=== PATIENT | female | born 1985 | race Caucasian/White ===

== ENCOUNTER 2024-05-07 13:48 | Outpatient (CLI) | payer BC, SELFPAY | END 2024-05-07 13:49 | disposition home or self-care (01) | LOC: ANHIMG 13:51 | PROVIDERS: PCP Family Medicine; Visit Provider Family Medicine | DX: Z12.31 Encounter for screening mammogram for malignant neoplasm of breast (principal); R92.8 Other abnormal and inconclusive findings on diagnostic imaging of breast | CPT/HCPCS: 77063; 77067 ==

== ENCOUNTER 2024-05-24 10:48 | Outpatient (CLI) | payer BC, SELFPAY ==
--- NOTE | ~2024-05-24 | MMUS_ITS ---
EXAMINATION: MM diagnostic eduar LT w justin, US breast LT limited HISTORY: Follow-up left breast asymmetry TECHNIQUE: Additional 3-D tomosynthesis images of the left breast were performed and synthetic 2-D im ages were generated. CAD analysis was submitted and interpreted. High resolution Limited left breast ultrasound was performed. COMPARISON: 05/07/2024 BREAST PARENCHYMAL COMPOSITION: Not dense: There are scattered areas of fibroglandular density. FINDINGS: MAMMOGRAPHIC FINDINGS: There are no suspicious masses, calcifications or architectural distortion in the left breast to sugg est malignancy. ULTRASOUND: Limited left breast ultrasound: Normal heterogeneous echotexture. There is a small cyst at 1:00, 1 cm from the nipple measuring 2 mm. No suspicious masses to suggest malignancy. IMPRESSION: 1. No evidence for malignancy in the left breast. 2. Routine yearly screening mammogram and regular clinical breast examination are recommended. BI-RADS Category 2: Benign finding(s). Reviewed, dictated and finalized at location B. IMPRESSION: 1. No evidence for malignancy in the left breast. 2. Routine yearly screening mammogram and regular clinical breast examination a re recommended. BI-RADS Category 2: Benign finding(s).
--- OUTSIDE RECORDS SUMMARY | 2024-05-24 13:24 | XMS_ITS | Encounter Summary ---
Author Organization [facility] Address [address] [facility] [address] Care Team Providers Care Care Giver Name Role Phone Jasmyn Stewart MD Primary Care Provider [phone] Encounter Details Date Type Department Care Team (Late st Contact Info) Description 01/06/2019 Lab Requisition [facility] DermPath Lab [address] [facility], [place] [phone] Mikki Pierson DO [address] [facility] [address] [place] [address] Social History Tobacco Use Types Packs/Day Years Used Date Smoking Tobacco: Never Assessed Sex and Gender Information Value Date Recorded Sex Assigned at Female 09/18/2020 11:22 AM CDT Gender Identity Female 09/18/2020 11:22 AM CDT Sexual Orientation Not on file documented as of this encounter Plan of Treatment Not on file documented as of this encounter Procedures Procedure Name Priority Date/Time Associated Diagnosis Comments DERMATOPATHOLOGY Routine 01/05/2019 12:0 0 AM CDT documented in this encounter Results * DERMATOPATHOLOGY (01/05/2019 12:00 AM CDT) Case Report Dermatopathology Report Case: [id number] Authorizing Provider: Mikki Pierson DO Collected: 01/05/2019 12:00 AM Ordering Location: [facility] DermPath Lab Received: 01/06/2019 12:25 PM Pathologist: Wendy Lopez MD Specimen: Skin, left back 12:53 PM CDT DERMATOPATHOLOGY LABORATORY Final Diagnosis Specimen A. SKIN, left back: ACTINIC KERATOSIS (L57.0) (see microscopic description) 12:53 PM CDT DERMATOPATHOLOGY LABORATORY Clinical History R/O BCC. 12:53 PM CDT DERMATOPATHOLOGY LABORATORY Gross Description Specimen A: Received is one formalin filled container labeled with the patient's name and designated left back. The specimen consists of a shave measuring 2t2w0ja. Jar 0. 12:53 PM CDT DERMATOPATHOLOGY LABORATORY Microscopic Description Specimen A. SKIN, left back: There is focal parakeratosis. The lower half of the epidermis shows disorderly maturation of keratinocytes with nuclear pleomorphism. Additional deeper sections were obtained and reviewed. 12:53 PM CDT DERMATOPATHOLOGY LABORATORY Disclaimer An external and internal positive and negative controls are appropriate for the histochemical, immunohistochemical and immunofluorescence stain(s) in this case (if any), except where stated explicitly. The performance characteristics of the stain(s) cited in this report were developed and its performance characteristic determined by the Dermatopathology Laboratory at [facility], directed by Dr. Huong Lopez. These tests need not be, and therefore are not, approved by the [place] Food and Drug Administration. The tests are used for clinical purposes. Billing Codes Specimen Charges Stain Charges 91829 1 12:53 PM CDT DERMATOPATHOLOGY LABORATORY Embedded Images 12:53 PM CDT DERMATOPATHOLOGY LABORATORY Pathology/Cytolog y TISSUE SPECIMEN FROM SKIN / Unknown 01/05/2019 01/06/2019 12:25 PM CDT Mikki Pierson DO LAB - PATHOLOGY/C YTOLOGY ORDERABLES DERMATOPATHOLOGY LABORATORY [facility] - Department of Dermatology [address] [place] [address], 5th Floor Lab [address] [phone] documented in this encounter Visit Diagnoses Not on filedocumented in this encounter Care Teams Care Giver Relationship Specialty Start Date End Date Jasmyn Stewart MD [address] [place] [phone] PCP - General Internal Medicine 05/27/17 documented as of this encounter
--- OUTSIDE RECORDS SUMMARY | 2024-05-24 13:24 | XMS_ITS | Clinical Summary ---
Author Organization [facility] [address] Address [address] [place] [address] Phone Care Team Providers Care Mathematical Engineer Name Role Phone Mary Stewart MD Primary Care Provider [phone] Allergies Active Allergy Reactions Criticality Noted Date Comments Meloxicam Low Medications Blisovi Fe 03/29, 28, 1 mg-20 mcg (21)/75 mg (7) per tablet Take 1 tablet by mouth daily 2 Active fluticasone propionate (FLONASE) 50 mcg/actuation nasal spray Administer 1 spray into each nostril daily Active Active Problems Problem Noted Date Diagnosed Date Chronic rhinitis 02/02/2017 Constipation, chronic 02/02/2017 Chronic GERD 02/02/2017 Immunizations Immunization Administration Dates Next Due Influenza, Quadrivalent, Split, Intramuscular Varicella 01/29/2016 Social History Tobacco Use Types Packs/Day Years Used Date Smoking Tobacco: Never Smokeless Tobacco: Never AUDIT-C Answer Date Recorded Frequency of Alcohol Consumption Not on file 08/29/2021 Q2: How many drinks containi ng alcohol do you have on a typical day when you are drinking? Patient does not drink Frequency of Binge Drinking Not on file 08/09 Personal Safety Answer Date Recorded Getting School Help Needed Not on file 02/26 Comments Unknown Sex and Gender Information Value Date Recorded Sex Assigned at Not on file Legal Sex Female 4:16 PM PUBLIC HEALTH SANITARIAN TECHNICIAN Gender Identity Not on file Sexual Orientation Not on file Obstetrics History Para Term AB IAB SAB Ectopic Multiple Livin g Live Births 1 Date Outcome GA Total Labor Labor/2nd/3rd Weight Sex Type Anes PTL Neli A1 A5 Name Clin Last Filed Vital Signs Vital Sign Reading Time Taken Comments Blood Pressure 119/75 12/24/2021 10:59 AM CDT Pulse 95 12/24/2021 10:59 AM CDT Temperature 37.2 C (99 F) 12/24/2021 10:59 AM CDT Respiratory Rate 18 12/24/2021 10:59 AM CDT Oxygen Saturation 99% 12/24/2021 10:59 AM CDT Inhaled Oxygen Concentration - - Weight 63 kg (138 lb 14.4 oz) 12/24/2021 10:59 A M CDT Height 161.3 cm (5' 3.5 ) 12/24/2021 10:59 AM CD T Body Mass Index 24.22 12/24/2021 10:59 AM CDT Plan of Treatment Health Maintenance Due Date Last Done Comments Breast Cancer Screening-Mammogram 1984 Depression Screening 1984 Hepatitis C Screening 1984 Hepatitis B Screening 02/23/2002 Regular Well Visit/Exam 18-64 02/23/2002 Cervical Cancer Screening 01/26/20142012, 01/20/2012 Varicella Vaccines (2 of 2 - 13+ 2-dose series) 02/26/2016 01/29/2016 Influenza Vaccine (#1) 2023 01/29/2016 DTaP/Tdap/Td Vaccine (2 - Td or Tdap) 05/28/2027 05/27/2017 HPV Vaccines Aged Out No longer eligi ble based on patient's age to complete this topic Pneumococcal vaccine <65 Aged Out No longer eligible based on patient's age to complete this topic Procedures Procedure Name Priority Date/Time Associated Diagnosis Comments THINPAP, REFLEX HPV ALL PTH Routine 01/26/2013 9:01 AM PUBLIC HEALTH SANITARIAN TECHNICIAN from Last 3 Months or Most Recently Relevant to Health Maintenance Results * ThinPrep Pap, Reflex HPV all pth (01/26/2013 9:01 AM PUBLIC HEALTH SANITARIAN TECHNICIAN) SOURCE: SEE NOTE [facility] HISTORICAL RESULTS Comment:Vagina, Cervix, Endo cervix CLINICAL INFORMATION: SEE NOTE [facility] HISTORICAL RESULTS Comment:Information not prov ided LMP SEE NOTE [facility] HISTORICAL RESULTS Comment:INFORMATION NOT PROV IDED Previous Pap SEE NOTE [facility] HISTORICAL RESULTS Comment:INFORMATION NOT PROV IDED Prev. Bx SEE NOTE [facility] HISTORICAL RESULTS Comment:INFORMATION NOT PROV IDED Pap, specimen adequacy SEE NOTE [facility] HISTORICAL RESULTS Comment: Satisfactory for evaluation. Endocervical/transformation zone component present. Age and/or menstrual status not provided HPV interp SEE NOTE [facility] HISTORICAL RESULTS Comment:Negative for intraep ithelial lesion or malignancy. Lactobacillus species SEE NOTE [facility] HISTORICAL RESULTS Comment: This Pap test has been evaluated with computer assisted technology. Stereo Operator SEE NOTE [facility] HISTORICAL RESULTS Comment:BLG, CT(ASCP) Review digital sales executive SEE NOTE [facility] HISTORICAL RESULTS Comment: MLO, CT(ASCP) Test performed at [facility] [employer] [address] Director: RICHELLE CORTEZ DO, MPH 01/26/2013 9:01 AM PUBLIC HEALTH SANITARIAN TECHNICIAN Mary Stewart MD LAB PATHOLOGY ORDERABLES F inal Result [facility] HISTORICAL RESULTS from Last 3 Months or Most Recently Relevant to Health Maintenance Insurance [place] [place] [employer] [place] [address] [address] [employer] Care Teams Mathematical Engineer Relationship Specialty Start Date End Date Mary Stewart MD PCP - General 06/07/16
--- OUTSIDE RECORDS SUMMARY | 2024-05-24 13:24 | XMS_ITS | Patient Health Summary ---
Author Organization [facility] [employer] Address [address] [facility] [place] [address] Care Team Providers Care Conventional Machinist Name Role Phone Jasmyn Stewart MD Primary Care Provider [phone] Note from [facility],non-owned Affiliates and Associated Physician Practices is amultiple site organization consisting of ambulatory clinics and hospital sitesin [place], [place], [place] and [place]. This disclosure is being madepursuant to the Care Everywhere program and may not contain all information available regarding this patient. Last updated 17.[facility] Allergies * Meloxicam(Rash) -Medium Criticality Medications Be aware that medications may not be up to date on this document. Always verify current medications with the patient. No known medications Immunizations * TDAP (7yrs+)(Given 05/27/2017) Social History Tobacco Use Types Packs/Day Years Used Date Smoking Tobacco: Never Assessed Sex and Gender Information Value Date Recorded Sex Assigned at Female 09/18/2020 11:22 AM CDT Gender Identity Female 09/18/2020 11:22 AM CDT Sexual Orientation Not on file Last Filed Vital Signs Vital Sign Reading Time Taken Comments Blood Pressure 112/64 09/18/2020 2:06 PM CDT Pulse 88 09/18/2020 2:06 PM CDT Temperature 37 C (98.6 F) 09/18/2020 2:06 PM CDT Respiratory Rate 16 09/18/2020 2:06 PM CDT Oxygen Saturation 99% 09/18/2020 2:06 PM CDT Inhaled Oxygen Concentration - - Weight 57.6 kg (127 lb) 09/18/2020 2:06 PM CDT Height 160 cm (5' 3 ) 09/18/2020 2:06 PM CDT Body Mass Index 22.5 09/18/2020 2:06 PM CDT Procedures * DERMATOPATHOLOGY(Performed 01/11/2020) * DERMATOPATHOLOGY(Performed 01/05/2019) Results * DERMATOPATHOLOGY (01/11/2020 12:00 AM RV BODY MECHANIC) Only the most recent of2 resultswithin the time period is included. Case Report Dermatopathology Report Case: [id number] Authorizing Provider: Alison Wheeler MD Collected: 01/11/2020 12:00 AM Ordering Location: [facility] DermPath Lab Received: 01/12/2020 06:44 AM Pathologist: Wendy Lopez MD Specimens: A) - Skin, right breast B) - Skin, low mid back 0 4:23 PM [facility] DERMATOPATHOLOGY LABORATORY Final Diagnosis Specimen A. SKIN, right breast: LENTIGINOUS MELANOCYTIC NEVUS, JUNCTIONAL TYPE, IRRITATED (JUNCTIONAL MELANOCYTIC NEVUS WITH ARCHITECTURAL DISORDER) (D22.5) Specimen B. SKIN, low mid back: LENTIGINOUS MELANOCYTIC NEVUS, JUNCTIONAL TYPE, IRRITATED (JUNCTIONAL MELANOCYTIC NEVUS WITH ARCHITECTURAL DISORDER) (D22.5) 0 4:23 PM [facility] DERMATOPATHOLOGY LABORATORY Clinical History A-B: R/O nevus, irregular color. 0 4:23 PM [facility] DERMATOPATHOLOGY LABORATORY Gross Description Specimen A: Received is one formalin filled container labeled with the patient's name and designated right breast. The specimen consists of a shave measuring [id number]. Jar 0. Specimen B: Received is one formalin filled container labeled with the patient's name and designated low mid back. The specimen consists of a shave measuring 2e2x5so. Jar 0. 0 4:23 PM [facility] DERMATOPATHOLOGY LABORATORY Microscopic Description Specimen A. SKIN, right breast: This is a junctional nevus. There is melanin pigment in the stratum corneum. There is architectural disorder characterized by a lentiginous proliferation of melanocytes between irregular nests of cells along the dermal-epidermal junction, highlighted by MART-1/Melan-A immunohistochemical staining. There is underlying fibroplasia of the papillary dermis. Original and deeper sections were reviewed. (Junctional Deshaun's Nevus or Junctional Dysplastic Nevus) Specimen B. SKIN, low mid back: This is a junctional nevus. There is melanin pigment in the stratum corneum. There is architectural disorder characterized by a lentiginous proliferation of melanocytes between irregular nests of cells along the dermal-epidermal junction. There is underlying fibroplasia of the papillary dermis. (Junctional Deshaun's Nevus or Junctional Dysplastic Nevus) 0 4:23 PM [facility] DERMATOPATHOLOGY LABORATORY Disclaimer An external and internal positive and negative controls are appropriate for the histochemical, immunohistochemical and immunofluorescence stain(s) in this case (if any), except where stated explicitly. The performance characteristics of the stain(s) cited in this report were developed and its performance characteristic determined by the Dermatopathology Laboratory at [facility], directed by Dr. Huong Lopez. These tests need not be, and therefore are not, approved by the [place] Food and Drug Administration. The tests are used for clinical purposes. Billing Codes Specimen Charges Stain Charges 13273 72601 1 1 15061 1 0 4:23 PM RV BODY MECHANIC DERMATOPATHOLOGY LABORATORY Embedded Images 0 4:23 PM RV BODY MECHANIC DERMATOPATHOLOGY LABORATORY Pathology/Cytology TISSUE SPECIMEN FROM SKIN / Unknown 01/11/2020 01/12/2020 6:44 AM RV BODY MECHANIC Miscellaneous samples (specimen) TISSUE SPECIMEN FROM SKIN / Unknown 01/11/2020 01/12/2020 6:44 AM RV BODY MECHANIC Alison Wheeler MD LAB - PATHOLOGY/CYT OLOGY ORDERABLES DERMATOPATHOLOGY LABORATORY [facility] - Department of Dermatology [address], [address] [phone] Care Teams Conventional Machinist Relationship Specialty Start Date End Date Jasmyn Stewart MD [address] [place] [phone] PCP - General Internal Medicine 05/27/17
--- OUTSIDE RECORDS SUMMARY | 2024-05-24 13:24 | XMS_ITS | Clinical Summary ---
Author Organization [facility] [employer] Address [address] [place] [address] Care Team Providers Care Production Associate Name Role Phone Jasmyn Stewart MD Primary Care Provider [phone] Source Comments [facility],non-owned Affiliates and Associated Physician Practices is amultiple site organization consisting of ambulatory clinics and hospital sitesin [place], [place], [place] and [place]. This disclosure is being madepursuant to the Care Everywhere program and may not contain all information available regarding this patient. Last updated 17.[facility] [facility] Allergies Active Allergy Reactions Criticality Noted Date Comments Meloxicam Rash Medium 09/18/2020 Medications Be aware that medications may not be up to date on this document. Always verify current medications with the patient. No known medications Immunizations Name Administration Dates Next Due TDAP (7yrs+) 05/27/2017 Social History Tobacco Use Types Packs/Day Years [...] Mass Index 22.5 09/18/2020 2:06 PM CDT Plan of Treatment Health Maintenance Due Date Last Done Comments LIPID TESTING 1984 MAMMOGRAM 1984 PAP SMEAR 1984 HIV SCREENING 02/23/1999 HEPATITIS C SCREENING 02/19/2002 HEPATITIS B VACCINE (1 of 3 - 19+ 3-dose series) 02/23/2003 COVID-19 VACCINE (2023-2 5 season) 2023 06/30/2020, 06/02/2020 INFLUENZA VACCINE (#1) 2023 , 12/25/2017, 01/29/2016 DEPRESSION SCREENING 03/10/2024 DTAP/TDAP/TD VACCINES (2 - T d or Tdap) 05/28/2027 05/27/2017 ZOSTER VACCINE (1 of 2) 02/23/2034 HIB VACCINE Aged Out No longer eligi ble based on patient's age to complete this topic HPV VACCINE Aged Out No longer eligi ble based on patient's age to complete this topic MENINGOCOCCAL (Group B) VACCINE SHARED DECISION-MAKING Aged Out No longer eligible based on patient's age to complete this topic MENINGOCOCCAL GROUPS A/C/Y/W VACCINE Aged Out No longer eligible b ased on patient's age to complete this topic PNEUMOCOCCAL VACCINE Aged Out No long er eligible based on patient's age to complete this topic Care Teams Production Associate Relationship Specialty Start Date End Date Jasmyn Stewart MD [address] [place] [phone] PCP - General Internal Medicine 05/27/17
--- OUTSIDE RECORDS SUMMARY | 2024-05-24 13:24 | XMS_ITS | Referral Summary ---
Author Organization [facility] [address] Address [address] [place] [address] Phone Care Team Providers Care Hydraulic Boom Operator Name Role Phone Mary Stewart MD Primary Care Provider [phone] Allergies Active Allergy Reactions Criticality Noted Date [...] on file Legal Sex Female 4:16 PM ADMISSIONS REPRESENTATIVE Gender Identity Not on file Sexual Orientation Not on file Last Filed [...] 12/24/2021 10:59 AM CDT Plan of Treatment Not on file Procedures Procedure Name Priority Date/Time Associated Diagnosis Comments THINPAP, REFLEX HPV ALL PTH Routine 01/26/2013 9:01 AM ADMISSIONS REPRESENTATIVE from Last 3 Months or Most Recently Relevant to Health Maintenance Results * ThinPrep Pap, Reflex HPV all pth (01/26/2013 9:01 AM ADMISSIONS REPRESENTATIVE) SOURCE: SEE NOTE [facility] HISTORICAL RESULTS Comment:Vagina, [...] has been evaluated with computer assisted technology. Director Of Claims SEE NOTE [facility] HISTORICAL RESULTS Comment:BLG, CT(ASCP) Review perl software engineer SEE NOTE [facility] HISTORICAL RESULTS Comment: MLO, CT(ASCP) [facility] [id number] [place] [phone] Director: RICHELLE CORTEZ DO, MPH 01/26/2013 9:01 AM ADMISSIONS REPRESENTATIVE us Mary Stewart MD LAB PATHOLOGY ORDERABLES F inal Result [facility] HISTORICAL RESULTS from Last 3 Months or Most Recently Relevant to Health Maintenance Insurance [place] [employer] D[place] Care Teams Hydraulic Boom Operator Relationship Specialty Start Date End Date Mary Stewart MD PCP - General 06/07/16
--- OUTSIDE RECORDS SUMMARY | 2024-05-24 13:24 | XMS_ITS | Encounter Summary ---
Author Organization [facility] Address [address] [facility] [facility] [place] [address] Care Team Providers Care Bondactor Machine Operator Name Role Phone Jasmyn Stewart MD Primary Care Provider [phone] Encounter Details Date Type Department Care Team (Late st Contact Info) Description 01/12/2020 Lab Requisition [facility] DermPath Lab [address] [facility], [place] [phone] Alison Wheeler MD [address] [facility] [address] [place] [address] Social History Tobacco Use Types Packs/Day Years [...] Priority Date/Time Associated Diagnosis Comments DERMATOPATHOLOGY Routine 01/11/2020 12:0 0 AM SCIENTIFIC INFORMATICS PROJECT LEADER documented in this encounter Results * DERMATOPATHOLOGY (01/11/2020 12:00 AM SCIENTIFIC INFORMATICS PROJECT LEADER) Case Report Dermatopathology Report Case: [id number] Authorizing Provider: Alison Wheeler MD Collected: 01/11/2020 12:00 AM Ordering Location: [facility] DermPath Lab Received: 01/12/2020 06:44 AM Pathologist: Wendy Lopez MD Specimens: A) - Skin, right breast B) - Skin, low mid back 0 4:23 PM [facility] DERMATOPATHOLOGY LABORATORY Final Diagnosis Specimen A. SKIN, right breast: LENTIGINOUS MELANOCYTIC NEVUS, JUNCTIONAL TYPE, IRRITATED (JUNCTIONAL MELANOCYTIC NEVUS WITH ARCHITECTURAL DISORDER) (D22.5) Specimen B. SKIN, low mid back: LENTIGINOUS MELANOCYTIC NEVUS, JUNCTIONAL TYPE, IRRITATED (JUNCTIONAL MELANOCYTIC NEVUS WITH ARCHITECTURAL DISORDER) (D22.5) 0 4:23 PM [facility] DERMATOPATHOLOGY LABORATORY Clinical History A-B: R/O nevus, irregular color. 0 4:23 PM [facility] DERMATOPATHOLOGY LABORATORY Gross Description Specimen A: Received is one formalin filled container labeled with the patient's name and designated right breast. The specimen consists of a shave measuring 0u1e4tl. Jar 0. Specimen B: Received is one formalin filled container labeled with the patient's name and designated low mid back. The specimen consists of a shave measuring 4r0z1nh. Jar 0. 0 4:23 PM [facility] DERMATOPATHOLOGY LABORATORY Microscopic Description Specimen A. SKIN, [...] or Junctional Dysplastic Nevus) 0 4:23 PM [facility] DERMATOPATHOLOGY LABORATORY Disclaimer An external and internal positive and negative controls are appropriate for the histochemical, immunohistochemical and immunofluorescence stain(s) in this case (if any), except where stated explicitly. The performance characteristics of the stain(s) cited in this report were developed and its performance characteristic determined by the Dermatopathology Laboratory at [facility], directed by Dr. Huong Lopez. These tests need not be, and therefore are not, approved by the [place] Food and Drug Administration. The tests are used for clinical purposes. Billing Codes Specimen Charges Stain Charges 14349 73817 1 1 57995 1 0 4:23 PM SCIENTIFIC INFORMATICS PROJECT LEADER DERMATOPATHOLOGY LABORATORY Embedded Images 0 4:23 PM SCIENTIFIC INFORMATICS PROJECT LEADER DERMATOPATHOLOGY LABORATORY Pathology/Cytology TISSUE SPECIMEN FROM SKIN / Unknown 01/11/2020 01/12/2020 6:44 AM SCIENTIFIC INFORMATICS PROJECT LEADER Miscellaneous samples (specimen) TISSUE SPECIMEN FROM SKIN / Unknown 01/11/2020 01/12/2020 6:44 AM SCIENTIFIC INFORMATICS PROJECT LEADER Alison Wheeler MD LAB - PATHOLOGY/CYT OLOGY ORDERABLES DERMATOPATHOLOGY LABORATORY [facility] - Department of Dermatology [facility] [address] [place] [address], [address] [phone] documented in this encounter Visit Diagnoses Not on filedocumented in this encounter Care Teams Bondactor Machine Operator Relationship Specialty Start Date End Date Jasmyn Stewart MD [address] [place] [address] PCP - General Internal Medicine 05/27/17 documented as of this encounter
--- OUTSIDE RECORDS SUMMARY | 2024-05-24 13:24 | XMS_ITS | Clinical Summary ---
Author Organization [employer] [facility] Address [address] [facility] [address] [place] [address] Phone Care Team Providers Care Farmer [employer] Name Role Phone Mary Stewart MD Primary Care Provider [phone] Social History Tobacco Use Types Packs/Day Years Used Date Smoking Tobacco: Never Assessed Comments Unknown Sex and Gender Information Value Date Recorded Sex Assigned at Not on file Legal Sex Female 4:11 PM CDT Gender Identity Not on file Sexual Orientation Not on file Plan of Treatment Health Maintenance Due Date Last Done Comments HEPATITIS B VACCINES (1 of 3 - 19+ 3-dose series) 02/23/2003 CERVICAL CANCER SCREENING 02/23/2014 INFLUENZA VACCINE (#1) 2023 01/29/2016 BREAST CANCER SCREENING 2024 DTAP/TDAP/TD VACCINES (2 - T d or Tdap) 05/28/2027 05/27/2017 HPV VACCINES Aged Out No longer eligi ble based on patient's age to complete this topic PNEUMOCOCCAL VACCINE 0-49 YEARS Aged Out No longer eligible based on patient's age to complete this topic Insurance [facility] BLUE ACCESS/TRUE BLUE PPO Care Teams Farmer [employer] Relationship Specialty Start Date End Date Mary Stewart MD [address] [place] [address] PCP - General Internal Medicine 05/27/13
--- OUTSIDE RECORDS SUMMARY | 2024-05-24 13:24 | XMS_ITS | Referral Summary ---
Author Organization [facility] Address [address] [place] [address] Care Team Providers Care Pilates Coordinator Name Role Phone Jasmyn Stewart MD Primary Care Provider [phone] Source Comments [facility],non-owned Affiliates and Associated Physician Practices is amultiple site organization consisting of ambulatory clinics and hospital sitesin [place], [place], [place] and [place]. This disclosure is being madepursuant to the Care Everywhere program and may not contain all information available regarding this patient. Last updated 17.[facility] Allergies Active Allergy Reactions Criticality Noted Date [...] 09/18/2020 2:06 PM CDT Plan of Treatment Not on file Care Teams Pilates Coordinator Relationship Specialty Start Date End Date Jasmyn Stewart MD [address] [place] [id number] PCP - General Internal Medicine 05/27/17
== END 2024-05-24 10:49 | disposition home or self-care (01) ==
LOC: ANHIMG 10:54
PROVIDERS: PCP Family Medicine; Visit Provider Family Medicine
DX: R92.8 Other abnormal and inconclusive findings on diagnostic imaging of breast (principal)
CPT/HCPCS: 76642; 77061; 77065; G0279